=== PATIENT | female | born 1995 | race American Indian/Alaskan Native ===

== ENCOUNTER 2017-02-13 21:42 | Emergency (ER) | payer OTHER ==
--- NOTE | 2017-02-14 01:58 | Emergency Department Report ---
ED Rash HPI - HPI Chief Complaint: Skin Rash Stated Complaint: RASH Time Seen by Provider: 02/14/17 00:40 Duration: 1 week Location: Upper Extremities, Lower Extremities Suspected Cause: Insect Rash Symptoms: Yes Itching, No Facial Swelling, No Tongue/Oral Swelling, No Breathing Difficulties, No Choking Sensation, No Wheezing/Dyspnea, No Peeling, No Blistering, No Fever, No Lightheaded, No Malaise, No Myalgias Severity: severe Other History: This is a 21 y.o. female visiting from [place]. Patient states she has been itching with a pronounced rash to BUE and BLE X 1 week. The itching is worse at night and started on hands and now it on bilateral upper and lower extremities. She have tried using hydrocortisone cream and benadryl with minimal relief. Mom bought her a new comforter and they didn't wash it prior to butting on bed. She is wondering if that is the cause of this rash. She is the only one in the house with the rash. ED Review of Systems ROS: Stated complaint: RASH Other details as noted in HPI Constitutional: no symptoms reported, see HPI. denies: chills, diaphoresis, fever, malaise, weakness Respiratory: no symptoms reported, see HPI. denies: cough, orthopnea, shortness of breath, SOB with exertion, SOB at rest, stridor, wheezing Cardiovascular: as per HPI. denies: chest pain, palpitations, dyspnea on exertion, orthopnea, edema, syncope, paroxysmal nocturnal dyspnea Skin: as per HPI, rash. denies: lesions, change in color, change in hair/nails , pruritus ED Past Medical Hx - Past Medical History Previous Medical History?: Yes - Surgical History Past Surgical History?: No - Social History Smoking Status: Never Smoker Substance Use Type: None - Medications Home Medications: Home Medications Medication Instructions Recorded Confirmed Last Taken Type Permethrin 5% [Acticin 5% CREAM] 1 applicatio TP ONCE #1 tube 02/14/17 Unknown Rx Prednisone [predniSONE 5 mg (6-Day 5 mg PO .TAPER #1 tab.ds.pk 02/14/17 Unknown Rx Pack, 21 Tabs)] hydrOXYzine PAMOATE [Vistaril] 25 mg PO Q6HR PRN #30 capsule 02/14/17 Unknown Rx Rash Exam - Exam General: Vital signs noted. No distress. Alert and acting appropriately. HEENT: No Periorbital Edema, No Conjuctival Injection, No Chemosis, No Perioral Edema, No Tongue Edema, No Uvular Edema, No Compromised Airway, No Drooling Lungs: Yes Good Air Exchange, No Wheezes, No Ronchi, No Stridor, No Cough, No Labored Respirations, No Retractions, No Use of Accessory Muscles, No Other Abnormal Lung Sounds Heart: Yes Regular, No Murmur Skin: Yes Maculopapular Rash (2-3 mm erythematous papules on BUE and BLE), Yes Erythema, No Urticarial Rash, No Morbilliform rash, No Bulla(e), No Excoriations , No Weeping, No Tenderness, No Edema, No Encrustations ED Course Vital Signs 02/13/17 21:48 Temperature 98.5 F Pulse Rate 88 Respiratory 17 Rate Blood Pressure 123/76 O2 Sat by Pulse 98 Oximetry ED Medical Decision Making - Differential Diagnosis bed bugs, atopic dermatitis Critical care attestation.: If time is entered above; I have spent that time in minutes in the direct care of this critically ill patient, excluding procedure time. ED Disposition Clinical Impression: Scabies Disposition: DC-01 TO HOME OR SELFCARE Is pt being admited?: No Does the pt Need Aspirin: No Condition: Stable Instructions: Scabies (ED) Additional Instructions: Wash clothing and bedding used after treatment in hot water. Items that can't be washed can be placed in a plastic bag for 72 hours. Itching may last up to 2 weeks after treatment. Prescriptions: hydrOXYzine PAMOATE [Vistaril] 25 mg PO Q6HR PRN #30 capsule PRN Reason: Itching Permethrin 5% [Acticin 5% CREAM] 1 applicatio TP ONCE #1 tube Prednisone [predniSONE 5 mg (6-Day Pack, 21 Tabs)] 5 mg PO .TAPER #1 tab.ds.pk Referrals: CATALINA PEÑA MD [Primary Care Provider] - 3-5 Days Time of Disposition: 02:10 Print Language: AZERI
[2017-02-14] MEDS ORDERED: DECADRON IM ONE (02:05)
[2017-02-14] MEDS ORDERED: BENADRYL PO ONE (02:05)
[2017-02-14 02:35] VITALS: BP 118/71
== END 2017-02-14 02:33 | disposition home or self-care (01) ==
LOC: ED 21:42
DX: B86 Scabies (principal)
CPT/HCPCS: 96372; 99282; J1100; Q0163